=== PATIENT | male | born 1980 | race Caucasian/White ===

== ENCOUNTER 2022-04-22 22:01 | Emergency (ER) | payer SELFPAY ==
[~2022-04-22] VITALS: Ht 167.6 cm; Wt 154.5 kg
[2022-04-22 23:03] LABS: URINE APPEARANCE HAZY; URINE COLOR ORANGE; URINE GLUCOSE NEGATIVE (NEGATIVE); URINE KETONE NEGATIVE (NEGATIVE)
[2022-04-22 23:04] LABS: URINE BLOOD 250 ery/uL (NEGATIVE); URINE LEUKOCYTE ESTERASE 2+ (NEGATIVE); URINE WBC >50 /hpf (0-3)
[2022-04-22 23:34] LABS: BASO # 0.03 K/mm3 (0.02-0.10); EOS # 0.26 K/mm3 (0.04-0.40); EOS % 2.5 % (0.0-4.0); HEMATOCRIT 41.6 % (42.0-52.0); HEMOGLOBIN 14.2 g/dL (13.5-18.0); LYMPH# 2.18 K/mm3 (1.50-4.00); MEAN CELL VOLUME 89 fl (78-100); MEAN CORPUSCULAR HEMOGLOBIN 30 pg (27-31); MEAN CORPUSCULAR HGB CONC 34 g/dL (33-37); MEAN PLATELET VOLUME 8.9 fl (7.4-10.4); MONO # 0.93 K/mm3 (0.20-0.80); NEU # 7.05 K/mm3 (1.40-6.50); PLATELET COUNT 195 K/mm3 (130-400); RED CELL DISTRIBUTION WIDTH 13.5 % (11.5-14.5); WHITE BLOOD COUNT 10.5 K/mm3 (4.8-10.8)
[2022-04-22] MEDS ORDERED: SEPTRA DS 8001 TAB PO (23:39)
[2022-04-22 23:54] VITALS: BP 166/99
== END 2022-04-22 23:45 | disposition home or self-care (01) ==
LOC: ED 22:01
PROVIDERS: Family Medicine
DX: N30.90 Cystitis, unspecified without hematuria (principal); E66.01 Morbid (severe) obesity due to excess calories; Z28.310 Unvaccinated for COVID-19

== ENCOUNTER → 2022-12-19 | Outpatient (CLI) | payer SELFPAY ==
[~2022-12-19] MED LIST: SEPTRA DS 8001 TAB PO
== END ==
LOC: LAB 18:39
DX: N30.01 Acute cystitis with hematuria (principal)